=== PATIENT | female | born 2000 | race Caucasian/White ===

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

== ENCOUNTER 2022-10-22 16:02 | Emergency (ER) | payer BC, MEDICAID ==
[~2022-10-22] VITALS: Ht 165.1 cm; Wt 105.5 kg
[2022-10-22] MEDS ORDERED: HYDROCODONE/ACETAMINOPHEN 5-325 MG TABLET PO ONE (16:30)
[2022-10-22] MEDS ORDERED: LIDOCAINE 1% 10 ML VIAL SQ ONE (16:30)
[2022-10-22] MEDS ORDERED: PERTUSS(ACELL),DIPH,TET VAC/PF 0.5 ML SYRINGE IM. ONE (16:30)
[2022-10-22] MEDS ORDERED: AMOX1TAB16 PO (17:28)
[2022-10-22 17:30] VITALS: BP 118/65
== END 2022-10-22 17:33 | disposition home or self-care (01) ==
LOC: EMS 16:34
DX: S01.511A Laceration without foreign body of lip, initial encounter (principal); W54.0XXA Bitten by dog, initial encounter; Y93.39 Activity, other involving climbing, rappelling and jumping off; Y92.89 Other specified places as the place of occurrence of the external cause; Y99.8 Other external cause status
CPT/HCPCS: 99283; 90715; 90471; 12011; J3490